=== PATIENT | male | born 1970 | race Caucasian/White ===

== ENCOUNTER 2017-05-09 10:45 | Emergency (ER) | payer OTHER ==
[~2017-05-09] VITALS: Ht 167.6 cm; Wt 113.4 kg
[2017-05-09] MEDS ORDERED: SYNTHROID150 MCG PO (11:03)
[2017-05-09] MEDS ORDERED: IBUPROFEN 800800 MG PO (11:21)
[2017-05-09] MEDS ORDERED: FLEXERIL PO (11:21)
[2017-05-09] MEDS ORDERED: NORCO 5-325 TA1 EACH PO (11:21)
== END 2017-05-09 12:18 | disposition home or self-care (01) ==
LOC: ER 10:45
DX: S39.012A Strain of muscle, fascia and tendon of lower back, initial encounter (principal); E66.9 Obesity, unspecified; E03.9 Hypothyroidism, unspecified; Z68.41 Body mass index [BMI] 40.0-44.9, adult; X58.XXXA Exposure to other specified factors, initial encounter; Y93.89 Activity, other specified; Y92.89 Other specified places as the place of occurrence of the external cause; Y99.8 Other external cause status